=== PATIENT | female | born 1965 | race Caucasian/White ===

== ENCOUNTER → 2016-10-17 | Outpatient (CLI) | payer BC ==
[~2016-10-17] VITALS: Ht 168.9 cm; Wt 117.5 kg
[2016-10-17 13:37] VITALS: BP 149/86; PULSE 71; Ht 168.9 cm; Wt 117.5 kg
== END | disposition home or self-care (01) ==
LOC: C.NEUR 13:05
PROVIDERS: ATTEND Internal Medicine Pulmonary Disease
DX: G47.30 Sleep apnea, unspecified (principal)

== ENCOUNTER → 2016-10-18 | Outpatient (CLI) | payer BC ==
--- NOTE | 2016-10-18 10:04 | DIAGNOSTIC IMAGING REPORT ---
THYROID ULTRASONOGRAPHY CLINICAL HISTORY: Thyroid goiter COMPARISON STUDY: 10/04/2015 FINDINGS: The right lobe of the thyroid measures 63 x 28 x 27 mm. The left lobe of thyroid measures 35 x 14 x 16 mm. There is heterogeneous thyroid echotexture. There is an isoechoic circumscribed right lobe nodule containing a hypoechoic lobe measuring 14 x 14 x 14 mm. This previously measured 17 x 17 x 14 mm. There is a hypoechoic somewhat triangular focus within the posterior aspect of the right lobe measuring 9 mm. This remains unchanged in size. The previously identified hypoechoic left lobe nodules are not appreciated on today's study. IMPRESSION: Multinodular thyroid goiter. No enlarging nodules are visualized Electronically signed by: Lalo Sanchez M.D. 10/18/2016 10:02 AM Dictated Date/Time: 10/18/2016 10:00 AM
== END | disposition home or self-care (01) ==
LOC: C.ULTR 09:24
PROVIDERS: ATTEND Family Medicine
DX: E04.2 Nontoxic multinodular goiter (principal)

== ENCOUNTER → 2016-12-04 | Outpatient (CLI) | payer BC | END | disposition home or self-care (01) | LOC: C.PAPS 14:20 | PROVIDERS: ATTEND Obstetrics & Gynecology | DX: Z01.419 Encounter for gynecological examination (general) (routine) without abnormal findings (principal) ==

== ENCOUNTER → 2016-12-16 | Outpatient (CLI) | payer BC ==
--- NOTE | 2016-12-17 08:02 | MAMMOGRAPHY REPORT ---
BILATERAL DIGITAL SCREENING MAMMOGRAM TOMOSYNTHESIS WITH CAD: 12/16/2016 CLINICAL HISTORY: Routine screening. Patient has no complaints. TECHNIQUE: Breast tomosynthesis in addition to standard 2D mammography was performed. Current study was also evaluated with a Computer Aided Detection (CAD) system. COMPARISON: Comparison is made to exams dated: 11/16/2015 mammogram, 11/15/2014 mammogram, 10/04/2013 m ammogram - [facility], 09/26/2008, 09/27/2009 mammogram, and 09/28/2010 mammogram - [facility]. BREAST COMPOSITION: There are scattered areas of fibroglandular density in both breasts. There are involutional changes compared to prior mammograms. FINDINGS: There are stable intramammary lymph nodes in each upper outer quadrant. No suspicious mas s, architectural distortion or cluster of microcalcifications is seen. IMPRESSION: ACR BI-RADS CATEGORY 1: NEGATIVE There is no mammographic evidence of malignancy. A 1 year screening mammogram is recommended. The p atient will receive written notification of the results. Approximately 10% of breast cancers are not detected with mammography. A negative mammographic repor t should not delay biopsy if a clinically suggestive mass is present. Jing Mosqueda M.D. ay/:12/16/2016 21:15:53 Rolloff Driver: Leanna FONG(Venancio)(Maura)([place]), [facility] letter sent: Normal 1/2 BI-RADS Code: ACR BI-RADS Category 1: Negative
== END | disposition home or self-care (01) ==
LOC: C.MAMM 12:15
PROVIDERS: ATTEND Obstetrics & Gynecology
DX: Z12.31 Encounter for screening mammogram for malignant neoplasm of breast (principal)

== ENCOUNTER → 2017-04-01 | Outpatient (CLI) | payer BC ==
--- NOTE | 2017-04-01 13:47 | DIAGNOSTIC IMAGING REPORT ---
RIGHT NECK ULTRASONOGRAPHY CLINICAL HISTORY: BEHIND RIGHT EAR LUMP COMPARISON STUDY: No previous studies for comparison. FINDINGS: In the area of clinical concern medially beneath the right ear there is a 12 x 7 x 9 mm nodule with imaging characteristics consistent with a lymph node. There is borderline cortical thickening. Clinical follow-up is advocated. If this nodule persists or enlarges, then fine-needle aspiration biopsy could be obtained in follow-up. IMPRESSION: The palpable right retroauricular nodule, corresponds to a 12 x 7 x 9 mm lymph node with borderline cortical thickening. Clinical follow-up is advocated. Electronically signed by: Lalo Sanchez M.D. 04/01/2017 1:46 PM Dictated Date/Time: 04/01/2017 1:36 PM
== END | disposition home or self-care (01) ==
LOC: C.ULTRBC 13:08
PROVIDERS: ATTEND Nurse Practitioner
DX: R22.1 Localized swelling, mass and lump, neck (principal)

== ENCOUNTER → 2017-10-24 | Outpatient (CLI) | payer BC ==
--- NOTE | 2017-10-24 15:02 | DIAGNOSTIC IMAGING REPORT ---
ULTRASOUND OF THE THYROID GLAND CLINICAL HISTORY: Thyroid nodule. Neck lump. COMPARISON STUDY: Thyroid ultrasound dated 10/18/2016. TECHNIQUE: Real-time, grayscale, and color flow sonography of the thyroid gland is performed utilizing a high-frequency linear transducer. Images are reviewed in the transverse and longitudinal planes. FINDINGS: Right lobe: The right lobe of the thyroid gland is normal in size and routine in echotexture, measuring 4.8 x 2.8 x 2.4 cm. The right lobe appears hyperemic on color imaging. A hypoechoic nodule with a hypoechoic halo in the midpole measures 1.5 x 1.2 x 1.4 cm (previously measured 1.4 x 1.4 x 1.4 cm). A hypoechoic nodule in the posterior midpole measures 0.8 x 0.6 x 0.6 cm (previously measured 0.9 x 0.7 x 0.6 cm). Left lobe: The left lobe of the thyroid gland is atrophic and heterogeneous in echotexture, measuring 2.8 x 1.6 x 1.5 cm. The left lobe appears hyperemic on color imaging. No discrete nodule is seen. Isthmus: The thyroid isthmus is heterogeneous and measures 0.2 cm in AP diameter. Soft tissues: A subcentimeter benign-appearing cervical lymph nodes seen in the right neck at the point of interest specified by the patient. IMPRESSION: 1. The thyroid gland is atrophic, heterogeneous, and hyperemic on color imaging. The appearance suggests thyroiditis. Correlation with serum thyroid function studies will be required. 2. Scattered low suspicion thyroid nodules are unchanged from previous. These do not meet sonographic criteria for fine needle aspiration. 3. A benign-appearing subcentimeter lymph node is noted at the site of palpable concern. This is of doubtful significance. Electronically signed by: Fritz Cao M.D. 10/24/2017 3:01 PM Dictated Date/Time: 10/24/2017 2:57 PM
== END | disposition home or self-care (01) ==
LOC: C.ULTR 13:38
PROVIDERS: ATTEND Family Medicine
DX: R22.1 Localized swelling, mass and lump, neck (principal); E04.2 Nontoxic multinodular goiter

== ENCOUNTER → 2017-12-10 | Outpatient (CLI) | payer BC | END | disposition home or self-care (01) | LOC: C.PAPS 13:35 | PROVIDERS: ATTEND Obstetrics & Gynecology | DX: Z01.419 Encounter for gynecological examination (general) (routine) without abnormal findings (principal); Z78.0 Asymptomatic menopausal state ==

== ENCOUNTER → 2017-12-17 | Outpatient (CLI) | payer BC ==
--- NOTE | 2017-12-18 08:02 | MAMMOGRAPHY REPORT ---
BILATERAL DIGITAL SCREENING MAMMOGRAM TOMOSYNTHESIS WITH CAD: 12/17/2017 CLINICAL HISTORY: Routine screening. Patient has no complaints. TECHNIQUE: Breast tomosynthesis in addition to standard 2D mammography was performed. Current study was also evaluated with a Computer Aided Detection (CAD) system. COMPARISON: Comparison is made to exams dated: 12/16/2016 mammogram, 11/16/2015 mammogram, 11/15/2014 mamm ogram, 10/04/2013 mammogram, 10/01/2012 mammogram, and 10/01/2011 mammogram - [facility] enter. BREAST COMPOSITION: There are scattered areas of fibroglandular density in both breasts. FINDINGS: There are stable intramammary lymph nodes in each upper outer quadrant. Mild involutional changes comparing to prior mammograms. No suspicious mass, architectural distortion or cluster of mario rocalcifications is seen. IMPRESSION: ACR BI-RADS CATEGORY 1: NEGATIVE There is no mammographic evidence of malignancy. A 1 year screening mammogram is recommended. The pa tient will receive written notification of the results. Approximately 10% of breast cancers are not detected with mammography. A negative mammographic report should not delay biopsy if a clinically suggestive mass is present. Jing Mosqueda M.D. ay/:12/17/2017 12:49:13 Site Acquisition Manager: Conchita Garcia, [facility] letter sent: Normal 1/2 BI-RADS Code: ACR BI-RADS Category 1: Negative
== END | disposition home or self-care (01) ==
LOC: C.MAMM 11:15
PROVIDERS: ATTEND Obstetrics & Gynecology
DX: Z12.31 Encounter for screening mammogram for malignant neoplasm of breast (principal)